=== PATIENT | female | born 1930 | race Caucasian/White ===

== ENCOUNTER 2017-01-21 10:10 | Inpatient (IN) | payer OTHER ==
[~2017-01-21] VITALS: Ht 157.5 cm; Wt 61.2 kg
[2017-01-21] VITALS (8 sets, daily range): BP systolic 89–123; BP diastolic 52–73
--- NOTE | ~2017-01-21 | P ---
[facility] [place] [address] PROCEDURE REPORT Name: AMARA GIBBONS Room #: 464-P [facility] IN M.R.#: [id number] Admission: 01/21/17 Attend Phys: Ted Cutler MD Discharge: 01/27/17 Date of : 31 Report #: [id number] THIS REPORT FOR: //name// CC: FAM unknown Rosemary Mcdermott MD DATE OF SERVICE: 01/26/2017 PROCEDURE PERFORMED: ERCP with sphincterotomy and stone removal. HISTORY OF PRESENT ILLNESS: The patient is an 86-year-old female who was admitted on 01/21/2017 with abdominal pain. She is originally admitted in [place] and was found to have cholelithiasis and transferred to [place]. Dr. Mcdermott proceeded with a cholecystectomy for a gangrenous necrotic gallbladder intraoperative cholangiogram revealed evidence of choledocholithiasis. The patient has been doing well post-surgery. Her LFTs remain normal. Plan is for ERCP. DESCRIPTION OF PROCEDURE: The risks and benefits of the procedure were explained to the patient. Those risks including but not limited to bleeding, perforation and the risk of sedation. She understood these risks and gave informed consent. Sedation was given using MAC anesthesia per anesthesia. The procedure was performed in the interventional radiology suite. The patient is already on IV Zosyn at this time. She was also given a 50 mg indomethacin rectal suppository prior to the procedure. Next, using a standard Fujinon side-viewing ERCP scope, the scope was placed in the patient's mouth and advanced under direct vision through the esophagus, stomach and into the second portion of the duodenum. The major papilla was identified and normal in appearance. Next, using a Matt-FoxyTunes 0.025 dome-tipped sphincterotome catheter, initially the pancreatic duct was cannulated and I then manipulated the catheter and was able to get into the common bile duct. A cholangiogram was then obtained. There appeared to be several filling defects within the common bile duct, which was dilated somewhat to bout 9-10 mm. A guidewire was then advanced into the intrahepatic ducts, which were normal. Next, a sphincterotomy was performed without difficulty. Next, the sphincterotome was removed and a balloon catheter was advanced over the guidewire into the common bile duct. Next, balloon sweeps were then performed. A total of 3 medium sized stones were removed without difficulty. Several further balloon sweeps showed no further stones. Next, a balloon occlusion cholangiogram was obtained. There were no further filling defects noted. At this point, the catheter and wire removed. The scope was then withdrawn and the procedure terminated. The patient tolerated the procedure well. [address] [address] PROCEDURE REPORT Name: AMARA GIBBONS Room #: 464-P DIS IN M.R.#: [id number] Admission: 01/21/17 Attend Phys: Ted Cutler MD Discharge: 01/27/17 Date of : 31 Report #: [id number] IMPRESSION: 1. Choledocholithiasis status post ERCP with sphincterotomy and removal of 3 stones. 2. Normal intrahepatic bile duct. RECOMMENDATIONS: Observe the patient post-procedure. Thank you for allowing me to participate in her care. <ELECTRONICALLY SIGNED> By: Musa Conner MD 01/29/17 1440 1412 1812 Musa Conner MD /nt
--- NOTE | ~2017-01-21 | S ---
[facility] [place] [address] SURGICAL PATH RPT PROCEDURE Name: AMARA GIBBONS Room #: 464-P ADM IN M.R.#: [id number] Admission: 01/21/17 Date of : 31 Discharge: Report #: [id number] Path Case #: [id number] PATHOLOGY REPORT COLLECTION DATE: 01/21/2017 RECEIVED DATE: 01/22/2017 SUBMITTING PHYS: Dr. Luis Mcdermott OTHER PHYS: Dr. He Jean SPECIMEN(S) RECEIVED: A.Gallbladder * * * * * * * * * * * * FINAL DIAGNOSIS: Gallbladder, cholecystectomy: - Marked acute cholecystitis associated with gangrenous necrosis and ulceration. - Cholelithiasis. - One incidental lymph node. (IUV:mgr; 01/25/2017) PATHOLOGIST: No Marrero M.D. REPORT ELECTRONICALLY SIGNED BY: No Marrero M.D. DATE/TIME: 01/25/2017 18:55 * * * * * * * * * * * * GROSS PATHOLOGY: Received in formalin labeled "Amara French, gallbladder," is a 10.2 x 4.8 x 1.7 cm, previously opened gallbladder with smooth, shiny, and dark browndark pinkgray serosal surfaces. The gallbladder is opened to show a spongy, dark greenbrown, bile-stained mucosa and an average wall thickness of 0.2 cm. Calculi are present and no masses are noted grossly. Manager Housekeeping sections from the body and fundus are submitted along with the proximal margin in cassette A1. (SNA; 01/22/2017) CLINICAL HISTORY: Acute cholecystitis INITIAL CPT CODE(S): A; 12398 Professional services performed by [facility] at [facility] [address], [place] [address] [facility] [address] [place] [address] SURGICAL PATH RPT PROCEDURE Name: AMARA GIBBONS Room #: 464-P ADM IN M.R.#: [id number] Admission: 01/21/17 Date of : 31 Discharge: Report #: [id number] Path Case #: [id number] Technical services performed by [facility] at [address] [place] [address], [address] [address]. [facility] [address] [place] [address] PHONE: [phone] DIRECTOR: Jimmy Waldron M.D. * * * END OF REPORT * * *
--- NOTE | ~2017-01-21 | O ---
[facility] [place] [address] OPERATIVE REPORT Name: AMARA GIBBONS Room #: 464-P ADM IN M.R.#: [id number] Admission: 01/21/17 Attend Phys: Ted Cutler MD Discharge: Date of : 31 Report #: [id number] THIS REPORT FOR: //name// CC: FAM hugo Rosemary Nelsy Mcdermott DATE OF SERVICE: 01/21/2017 SURGEON: Luis Mcdermott M.D. BOWLING TEACHER: None. PREOPERATIVE DIAGNOSES: 1. Acute cholecystitis. 2. Stage 3 chronic kidney disease. 3. Atrial fibrillation. 4. Mitral regurgitation. POSTOPERATIVE DIAGNOSES: 1. Acute ruptured cholecystitis with necrosis. 2. Choledocholithiasis. 3. Incarcerated umbilical hernia. 4. Stage 3 chronic kidney disease. 5. Atrial fibrillation. 6. Mitral regurgitation. PROCEDURE: 1. Laparoscopic cholecystectomy with intraoperative cholangiogram. 2. Laparoscopic repair of incarcerated umbilical hernia. ANESTHESIA: General endotracheal anesthesia and local anesthetic. ESTIMATED BLOOD LOSS: 25 mL. SPECIMEN: Gallbladder. COMPLICATIONS: None appreciated. INDICATIONS FOR PROCEDURE: This is an 86-year-old female patient who presented to the [facility] in [place] 2 days ago with acute onset right upper quadrant abdominal pain and awakening her from her sleep. She reports a 2-year history of biliary colic symptoms. She denies any fever or chills and had some nausea and vomiting. She was being planned for cholecystectomy; however, her INR could not be brought down appropriately and [facility] [address] [place] [address] OPERATIVE REPORT Name: AMARA GIBBONS Room #: 464-P ADM IN M.R.#: [id number] Admission: 01/21/17 Attend Phys: Ted Cutler MD Discharge: Date of : 31 Report #: [id number] she began to develop pulmonary issues. She was then transferred to [facility] for further treatment. She had undergone a CT of the abdomen and pelvis and abdominal ultrasound revealing a distended gallbladder with gallstones with no significant gallbladder wall thickening. Perihepatic fluid was present on the CT scan. On exam, the patient had right upper quadrant tenderness to palpation and leukocytosis with a mildly elevated bilirubin at 2.1 and normal transaminases. The patient presents now for laparoscopic cholecystectomy with intraoperative cholangiogram. OPERATIVE FINDINGS: Upon entrance into the abdominal cavity, purulent bilious fluid was seen in the right perihepatic gutter. The gallbladder itself was quite erythematous with patchy areas of necrosis. Upon further retraction of the gallbladder on the anterior surface, the gallbladder had perforated through an area of ulceration. A clip was placed to eliot this area. The critical view consisting of the cystic artery, cystic duct and lower edge of the gallbladder forming a window through which the liver was visible was seen prior to clipping the cystic artery and cystic duct. Cholangiogram showed a dilated common bile duct and a distal common bile duct filling defect. Despite the administration of 2 ends of glucagon, the distal common bile duct stone could not be flushed through. Contrast did flow into the duodenal sweep. Three clips remained on the cystic duct, stump; 1 clip remained on the cystic artery stump. After removal of the gallbladder from the patient's body, various sized stones, so after removal PEG of the gallbladder from the patient's body, various sized stones were present within the gallbladder. There were 4 medium to large sized stones and several smaller stones within the gallbladder. The gallbladder itself had patchy areas of necrosis. Upon return to the abdominal cavity, the bilious fluid was seen in the left upper quadrant. Fibrinous exudate was present in this area. Area was irrigated and suctioned as was the remainder of the abdominal cavity until fluid returned was clear as possible. Decision was made to place a drain. The Hemoclips were secure. Incarcerated umbilical hernia defect was present and this was repaired with a separate suture for complete closure. At the conclusion of the operation, the sponge, needle, and instrument counts were correct. DESCRIPTION OF PROCEDURE IN DETAIL: After the risks, benefits, and expectations of the operation were discussed in detail with the patient and family, informed consent was obtained. The patient was identified in the preoperative holding area. She was given IV antibiotics as documented in the chart in line with the SCIP metrics. The patient was then taken to the operating room and she was placed in the supine position. SCDs were placed on the patient's bilateral lower extremities and pneumatic compression was initiated. The patient was then given IV sedation and she was intubated without incident. Her abdomen was prepped and draped in the standard sterile fashion. A time-out was then performed to identify the correct patient and procedure. Local anesthetic was infiltrated into the skin and subcutaneous tissue supraumbilically where a curvilinear incision was made with #15 blade scalpel. The 11 mm Visiport was [facility] [address] [place] [address] OPERATIVE REPORT Name: AMARA GIBBONS Room #: 464-P ADM IN Sami.Domenic#: [id number] Admission: 01/21/17 Attend Phys: Ted Cutler MD Discharge: Date of : 31 Report #: [id number] then placed intraperitoneally with a 0-degree angled laparoscope. Pneumoperitoneum was achieved with insufflation of carbon dioxide to 15 mmHg. The patient was placed in the reverse Trendelenburg position, rotated to her left. A subxiphoid 5 mm and right subcostal 5 mm ports x 2 were placed under direct visualization after local anesthetic was infiltrated into the skin and subcutaneous tissue and appropriately sized incisions were made. Findings are as noted above. The fluid was suctioned from the abdominal cavity as much as possible. The dome of the gallbladder was then retracted and while dissecting away the surrounding tissue, the ulcerated area with perforation was identified. The gallbladder was retracted further cephalad and dissection was carried out around the cystic artery and cystic duct to identify both structures as the only two structures entering the gallbladder. This was done carefully. After identifying the critical view of safety, the cystic duct was clipped at its junction with the neck of the gallbladder. A ductotomy was created. The duct was milked back. The cholangiocatheter was then inserted into the opening and held in place with a Hemoclip. The patient was leveled and a cholangiogram was performed with findings as noted above. The patient was given 2 mg of glucagon and after waiting 2 minutes after its administration, the cystic duct was forcibly flushed with normal saline under fluoroscopy. The distal common bile duct filling defect did not clear. Despite this, contrast flowed into the duodenal sweep. The Hemoclip and Cholangiogram catheter were then removed. The cystic duct was triply clipped distal the ductotomy and the cystic duct was divided with the ultrasonic dissector leaving three clips on the cystic duct stump. The cystic artery was doubly clipped and divided leaving a single clip on the cystic artery stump. The gallbladder was then dissected out the liver bed with blunt dissection as well as use of the ultrasonic dissector and electrocautery. The gallbladder was detached from the liver bed, then placed in an Endopouch along with the stones that have spilled out of the opening in the gallbladder. The gallbladder was then removed through the supraumbilical port site. While doing so, umbilical hernia was identified. The preperitoneal tissue entering the defect was carefully dissected free to delineate the fascial opening. A [id number]-ut-qutwh 0 PDS suture was placed to close the fascial defect. An 0 PDS suture was placed with the Rian-Samra laparoscopic fascial closure device to approximate the port site fascial opening as well. The suture was tagged and the port was replaced. The abdominal cavity was reentered. The liver bed was made hemostatic with electrocautery. The abdominal cavity was irrigated and suctioned until return of all drainage ran as clear as possible. Bilious fluid was present in the left upper quadrant of the abdomen as well as in the right upper quadrant around the liver. A 19-Kiswahili Armin drain was placed within the abdominal cavity and brought out through the right lateral port site. The drain was secured to the skin with a 2-0 nylon suture. The drain was positioned intraabdominally to drain the liver bed as well as the left upper quadrant of the abdomen. The 12 mm port was then removed and the fascial suture was tied under direct visualization to ensure no incorporation of intraabdominal content. No other significant intraabdominal pathology was identified. The abdominal cavity was desufflated and the remaining ports were [address] [address] OPERATIVE REPORT Name: AMARA GIBBONS Room #: 464-P ADM IN M.R.#: [id number] Admission: 01/21/17 Attend Phys: Ted Cutler MD Discharge: Date of : 31 Report #: [id number] removed. Interrupted subcuticular 4-0 Monocryl sutures and Dermabond were used to close the skin incisions. The patient tolerated the procedure well. She was awakened, extubated, and taken to recovery room in stable condition with no apparent intraoperative complications. Gastroenterology has been consulted as the patient will likely require ERCP. <ELECTRONICALLY SIGNED> By: Luis Mcdermott MD, FACS 01/22/17 0735 2240 2347 Luis Mcdermott MD, FACS /nt
--- NOTE | ~2017-01-21 | HC ---
[facility] [place] [address] CONSULTATION Name: AMARA GIBBONS Room #: 464-P ADM IN M.R.#: [id number] Admission: 01/21/17 Attend Phys: Ted Cutler MD Discharge: Date of : 31 Report #: [id number] THIS REPORT FOR: //name// CC: FAM unknown Rosemary Mcdermott MD PRIMARY CARE PROVIDER: Nurse practitioner [facility] in [place], [place]. REASON FOR CONSULTATION: The patient is an 86-year-old woman status post laparoscopic cholecystectomy with evidence of choledocholithiasis. HISTORY OF PRESENT ILLNESS: This 86-year-old woman reports it is actually for the past 3-4 years she has had bouts of postprandial abdominal pain in her abdomen. When she gets the pain, she will generally lie down until the symptoms resolve. However, recently she had a severe episode of actually 2 pains; one was in the right upper quadrant and the other was in the mid abdomen. The pain persisted and she was admitted to hospital in [place]. She was found to have cholelithiasis, but due to her atrial fibrillation, she was transferred to [facility] and was taken to surgery yesterday by Dr. Mcdermott. She had a gangrenous, necrotic gallbladder, which was removed. Intraoperative cholangiogram revealed evidence of choledocholithiasis. There was clearly at least one stone in the distal duct and there were 2 other filling defects that flowed up in the bile duct. Although they flowed, to me they looked irregular and I suspect that these are stones as well. Following her surgery, she has done well. She has some postprandial pain today, but overall, she is comfortable without any specific complaints. LABORATORY DATA: Laboratory studies showed initially she had a bilirubin of 2.1; today, it is down 0.7. AST is 50, ALT 34 and alkaline phosphatase 49. Albumin 1.9. Electrolytes normal. Creatinine 1.3 and BUN of 23. White count was 11.9 yesterday, 11,000 today; hemoglobin 12.5 after hydration. INR is 1.3. PAST MEDICAL HISTORY: Atrial fibrillation, on warfarin. She has a leaky heart valve; she does not know which valve. She has a pacemaker in place. She has also had a high blood pressure. PAST SURGICAL HISTORY: Right hip replacement times 2, appendectomy many years ago, previous hysterectomy and right index finger amputation. She has had bladder suspension as well. ALLERGIES: No known drug allergies. MEDICATIONS: Usual home medications, Coreg 6.25 mg twice daily, digoxin 0.125 mg daily, fluoxetine 20 mg, furosemide 20 mg daily, Zestril 5 mg daily, [address] [address] CONSULTATION Name: AMARA GIBBONS Room #: 464-P [facility] IN M.R.#: [id number] Admission: 01/21/17 Attend Phys: Ted Cutler MD Discharge: Date of : 31 Report #: [id number] potassium 20 mEq daily, spironolactone 25 mg daily and warfarin 4 mg daily. FAMILY HISTORY: Sister had irritable bowel syndrome. No family history of colon cancer. SOCIAL HISTORY: She is , lives alone. She has never smoked. She does not drink alcohol. REVIEW OF SYSTEMS: GENERAL: No change in weight, fever or chills. CENTRAL NERVOUS SYSTEM: No focal weakness, numbness, loss of consciousness or strokes. ENT: No change in vision or hearing or sores in the mouth. PULMONARY: No cough, pneumonia or tuberculosis. CARDIOVASCULAR: Pacemaker, valvular heart disease and atrial fibrillation. Generally, no chest pain. GASTROINTESTINAL: She did have some nausea and vomiting with her severe episode of pain. She does tend to have some constipation. She has never had a colonoscopy. GENITOURINARY: Without dysuria, pyuria, kidney stones or . MUSCULOSKELETAL: Hip replacement. No other arthralgias. SKIN: Without rashes. PSYCHIATRIC: She is treated for depression/anxiety. ENDOCRINE: She is not aware of diabetes or thyroid problems. No change in hair, skin or weight. HEMATOLOGIC: No bleeding, bruising or malignancies. PHYSICAL EXAMINATION: GENERAL: The patient is a well-developed, well-nourished woman, in no acute distress. VITAL SIGNS: Blood pressure 110/59, pulse of 101. HEENT: Anicteric. Pupils equal and round. Oropharynx clear. NECK: Supple, without thyromegaly. CHEST: Clear. HEART: Irregular, S1, S2. ABDOMEN: Mild diffuse tenderness, consistent with a recent surgery. She does have bowel sounds. Abdomen is soft and completely benign. RECTAL: Not done. EXTREMITIES: Without cyanosis, clubbing or edema. NEUROLOGIC: Alert and oriented to person, place and time. Moves all 4 extremities well. Laboratory as noted above. ASSESSMENT: 1. Choledocholithiasis. [facility] [address] [place] [address] CONSULTATION Name: AMARA GIBBONS Room #: 464-P ADM IN M.R.#: [id number] Admission: 01/21/17 Attend Phys: Ted Cutler MD Discharge: Date of : 31 Report #: [id number] 2. Status post resection of necrotic gallbladder. 3. High blood pressure. 4. Atrial fibrillation, discussed with Dr. Mcdermott. The patient currently off anticoagulation. Discussed with patient. RECOMMENDATIONS: ERCP with endoscopic sphincterotomy and stone extraction. We will schedule as soon as it can be done. <ELECTRONICALLY SIGNED> By: Turner Chino MD 01/22/17 1523 1251 1443 Turner Chino MD /nt
--- NOTE | ~2017-01-21 | HC ---
[facility] [place] [address] CONSULTATION Name: AMARA GIBBONS Room #: 464-P ADM IN M.R.#: [id number] Admission: 01/21/17 Attend Phys: Ted Cutler MD Discharge: Date of : 32 Report #: [id number] THIS REPORT FOR: //name// CC: FAM unknown Rosemary Cutler DATE OF SERVICE: 01/21/2017 ATTENDING PHYSICIAN: Rosemary Whittington MD CONSULTING PHYSICIAN: Luis Mcdermott MD REASON FOR CONSULTATION: Right upper quadrant abdominal pain. HISTORY OF PRESENT ILLNESS: This is an 86-year-old female patient who presented to the [facility] Wednesday, 2 days ago, with acute onset right upper quadrant abdominal pain, which awakened her from her sleep prior to her admission. She reports having had previous biliary colic symptoms. She denies fever or chills and had some difficulty with nausea and vomiting. She was followed there and had an elevated INR for which she was treated with vitamin K and FFP. Dr. Ludin Cosby with the surgery department was planning on operating on the patient; however, he was unable to get her INR down to an appropriate level. In addition to this, the patient was felt to be developing pulmonary issues and as such, she was transferred to [facility]. I have been asked to see the patient for further evaluation and treatment. She underwent a CT of the abdomen and pelvis at [facility] as well as an ultrasound. Both studies showed a distended gallbladder with gallstones and no significant gallbladder wall thickening. On the CT scan, perihepatic fluid was present. PAST MEDICAL HISTORY: Significant for atrial fibrillation, stage 3 CKD, mitral regurgitation, and hypertension. PAST SURGICAL HISTORY: Pacemaker placement for sick sinus syndrome, appendectomy, bilateral total hip arthroplasty and laparoscopic hiatal hernia repair 4 years ago. MEDICATIONS: Currently include Zosyn, metoprolol, and p.r.n. medications. ALLERGIES: No known drug allergies. FAMILY HISTORY: Reviewed and noncontributory to this hospitalization. SOCIAL HISTORY: The patient denies use of tobacco, alcohol or illicit drugs. [place] and is accompanied by several family members. [facility] [address] [place] [address] CONSULTATION Name: AMARA GIBBONS Room #: 464-P [facility].#: [id number] Admission: 01/21/17 Attend Phys: Ted Cutler MD Discharge: Date of : 32 Report #: [id number] REVIEW OF SYSTEMS: As per history of present illness. In addition: GENERAL: The patient denies fever or chills. Reports a 20-pound weight loss over the past 6-7 years. HEENT: Denies changes in taste, vision, hearing, or smell. RESPIRATORY: Denies worsening shortness of breath, COPD, or asthma. CARDIOVASCULAR: Denies chest pain or palpitations. GASTROINTESTINAL: As per history of present illness. Denies bright red blood per rectum. GENITOURINARY: Denies dysuria, urgency, increased urinary frequency, or hematuria. MUSCULOSKELETAL: Denies myalgia or arthralgia. NEUROLOGIC: Denies headaches, numbness, or tingling. PSYCHIATRIC: Denies depression, anxiety, or suicidal ideations. SKIN AND INTEGUMENTARY: Denies new skin lesions, rashes, or moles. ENDOCRINE: Denies polydipsia, polyuria, heat or cold intolerance. HEMATOLOGIC: Reports easy bleeding and bruising on the Coumadin. All other review of systems is negative. PHYSICAL EXAMINATION: VITAL SIGNS: Temperature 97.8, blood pressure 110/72, pulse 90, respirations 18, height 5 feet 2 inches, and weight 135 pounds. GENERAL: This is an 86-year-old female patient, in no acute distress. She is friendly and cooperative. HEENT: Atraumatic, normocephalic with moist mucosal membranes. Oropharynx is clear. She has no scleral icterus. NECK: Supple, no appreciable lymphadenopathy. Trachea is midline. CHEST: Clear bilaterally. CARDIOVASCULAR: Regular rate and rhythm. ABDOMEN: Soft, but tender to palpation, greatest in the right upper quadrant. She has a negative Miller's sign, no rebound or guarding. There is fullness in the right upper quadrant of her abdomen. Surgical scars are present with no associated hernias. GENITOURINARY: Normal external female genitalia. EXTREMITIES: No clubbing, cyanosis, or edema. NEUROLOGIC: Cranial nerves 2-12 are grossly intact. PSYCHIATRIC: Normal mood and affect. SKIN/INTEGUMENTARY: No jaundice. LABORATORY DATA: CBC shows a white blood cell count of 11.9, hemoglobin 14.2, hematocrit 42.6, and platelets 181. Comprehensive metabolic profile showed a sodium of 136, potassium 3.7, chloride 100, CO2 of 24, BUN 15, creatinine 1.2, and glucose 85. Total bilirubin was elevated at 2.1. Her transaminases were within normal limits. Alkaline phosphatase was normal at 57. Lactic acid was normal at 1.5. Her stat INR was 1.35. [address] [address] CONSULTATION Name: AMARA GIBBONS Room #: 464-P [facility]#: [id number] Admission: 01/21/17 Attend Phys: Ted Cutler MD Discharge: Date of : 32 Report #: [id number] RADIOLOGIC STUDIES: CT and abdominal ultrasound findings are as noted above. The patient underwent chest x-ray here at [facility] showing left lower lung infiltrate/atelectasis with a possible small left pleural effusions. IMPRESSION AND PLAN: This is an 86-year-old female patient with the above listed comorbidities who has right upper quadrant abdominal pain and findings consistent with acute cholecystitis. We discussed the pathophysiology and natural history of biliary disease as well as the treatment alternatives and surgical options. The patient would benefit from laparoscopic cholecystectomy with cholangiogram. We also discussed the possibility of a cholecystostomy tube. We discussed the risks, benefits, and expectations of the operation in detail. The patient and her family expressed understanding. She would like to proceed with surgery and she appears to be stable enough to undergo the operation. She will be taken to the operating room at the next earliest availability. I sincerely appreciate the opportunity to participate in the care of this patient and we will leave further recommendations and orders in the electronic medical record as appropriate. Thank you very much. <ELECTRONICALLY SIGNED> By: Luis Mcdermott MD, FACS 01/21/174 28 Luis Mcdermott MD, FACS /nt
[2017-01-21 13:32] LABS: HEMATOCRIT 42.6 % (37.0-47.0); HEMOGLOBIN 14.2 gm/dL (12.0-15.0); MCHC 33.3 g/dL (28.0-37.0); MCV 93.2 fL (80.0-100.0); RBC 4.57 mil/uL (4.20-5.00); WBC 11.9 thou/uL (4.0-11.0)
[2017-01-21 13:49] LABS: ALBUMIN 2.3 g/dL (3.4-5.0); CALCIUM 8.3 mg/dL (8.5-10.1); CREATININE 1.2 mg/dL (0.6-1.0); POTASSIUM 3.7 mmol/L (3.5-5.1); TOTAL BILIRUBIN 2.1 mg/dL (<0.1-1.0); TOTAL PROTEIN 6.5 g/dL (6.4-8.2)
[2017-01-21 16:49] LABS: INR 1.3
[2017-01-21 16:52] LABS: PROTIME 13.7 Seconds (9.3-11.4)
[2017-01-21] MEDS ORDERED: COREG6.25 MG PO (19:04)
[2017-01-21] MEDS ORDERED: DIGOXIN125 MCG PO (19:04)
[2017-01-21] MEDS ORDERED: PROZAC20 MG PO (19:04)
[2017-01-21] MEDS ORDERED: LASIX 20 MG TAB20 MG PO (19:05)
[2017-01-21] MEDS ORDERED: POTASSIUM20 PO (19:05)
[2017-01-21] MEDS ORDERED: LISINOPRIL5 MG PO (19:05)
[2017-01-21] MEDS ORDERED: ALDACTONE25 MG PO (19:06)
[2017-01-21] MEDS ORDERED: COUMADIN 4 MG TA4 M1 PO (19:06)
[2017-01-22] VITALS (7 sets, daily range): BP systolic 89–120; BP diastolic 52–72
[2017-01-22 05:48] LABS: HEMATOCRIT 37.3 % (37.0-47.0); HEMOGLOBIN 12.5 gm/dL (12.0-15.0); MCH 31.4 pg (26.0-34.0); MCHC 33.5 g/dL (28.0-37.0); MCV 93.9 fL (80.0-100.0); PLATELET COUNT 167 thou/uL (150-400); RBC 3.97 mil/uL (4.20-5.00)
[2017-01-22 05:58] LABS: INR 1.3; MANUAL DIFF YES
[2017-01-22 06:05] LABS: ALBUMIN 1.9 g/dL (3.4-5.0); CALCIUM 7.8 mg/dL (8.5-10.1); CREATININE 1.3 mg/dL (0.6-1.0); MAGNESIUM 1.7 mg/dL (1.8-2.4); POTASSIUM 3.5 mmol/L (3.5-5.1); TOTAL BILIRUBIN 0.7 mg/dL (<0.1-1.0); TOTAL PROTEIN 5.9 g/dL (6.4-8.2)
[2017-01-22 07:28] LABS: ABSOLUTE NEUTROPHILS 10.1 thou/uL (1.4-8.2); ANISOCYTOSIS SLIGHT; TOTAL CELL COUNT 100
[2017-01-23 04:28] LABS: HEMATOCRIT 33.6 % (37.0-47.0); HEMOGLOBIN 11.4 gm/dL (12.0-15.0); MCH 31.5 pg (26.0-34.0); MCHC 33.8 g/dL (28.0-37.0); MCV 93.3 fL (80.0-100.0); PLATELET COUNT 199 thou/uL (150-400); RDW 12.8 % (10.5-14.5); WBC 11.6 thou/uL (4.0-11.0)
[2017-01-23 04:31] LABS: MANUAL DIFF YES
[2017-01-23 04:33] LABS: ALBUMIN 1.9 g/dL (3.4-5.0); DIRECT BILIRUBIN 0.2 mg/dL (<0.1-0.3); TOTAL BILIRUBIN 0.4 mg/dL (<0.1-1.0); TOTAL PROTEIN 5.8 g/dL (6.4-8.2)
[2017-01-23 04:56] VITALS: BP 116/86
[2017-01-23 06:52] LABS: ABSOLUTE NEUTROPHILS 10.7 thou/uL (1.4-8.2); ANISOCYTOSIS 1+; TOTAL CELL COUNT 100
[2017-01-23 06:53] LABS: POLYCHROMASIA OCCASIONAL
[2017-01-23 07:48] VITALS: BP 127/86
[2017-01-23 12:04] VITALS: BP 137/80
[2017-01-23 15:23] VITALS: BP 127/84
[2017-01-23 20:28] VITALS: BP 141/97
[2017-01-24 00:46] VITALS: BP 128/78
[2017-01-24 04:47] LABS: ALBUMIN 1.9 g/dL (3.4-5.0); CALCIUM 7.9 mg/dL (8.5-10.1); CREATININE 1.2 mg/dL (0.6-1.0); POTASSIUM 3.3 mmol/L (3.5-5.1)
[2017-01-24 05:04] VITALS: BP 132/88
[2017-01-24 08:43] VITALS: BP 138/93
[2017-01-24 12:17] VITALS: BP 147/88
[2017-01-24 15:34] VITALS: BP 125/85
[2017-01-25] VITALS: BP 130/94
[2017-01-25 03:48] VITALS: BP 133/95
[2017-01-25 07:52] VITALS: BP 143/92
[2017-01-25 10:38] LABS: CALCIUM 8.2 mg/dL (8.5-10.1); CREATININE 1.2 mg/dL (0.6-1.0); POTASSIUM 3.6 mmol/L (3.5-5.1)
[2017-01-25 12:13] VITALS: BP 131/72
[2017-01-25 16:23] VITALS: BP 125/88
[2017-01-25 19:31] VITALS: BP 130/81
[2017-01-26 04:45] VITALS: BP 131/83
[2017-01-26 05:38] LABS: ABSOLUTE NEUTROPHILS 7.2 thou/uL (1.4-8.2); BASOPHILS 0.5 % (0.0-2.0); EOSINOPHILS 4.8 % (0.0-3.0); HEMATOCRIT 36.8 % (37.0-47.0); HEMOGLOBIN 12.5 gm/dL (12.0-15.0); LYMPHOCYTES 10.5 % (24.0-44.0); MCH 31.7 pg (26.0-34.0); MCHC 33.9 g/dL (28.0-37.0); MCV 93.5 fL (80.0-100.0); MONOCYTES 9.4 % (1.0-8.0); PLATELET COUNT 232 thou/uL (150-400); POLYS 74.8 % (36.0-66.0); RBC 3.94 mil/uL (4.20-5.00); RDW 13.5 % (10.5-14.5); WBC 9.6 thou/uL (4.0-11.0)
[2017-01-26 05:44] LABS: MANUAL DIFF NO
[2017-01-26 05:58] LABS: ALBUMIN 1.9 g/dL (3.4-5.0); CALCIUM 8.4 mg/dL (8.5-10.1); CREATININE 1.1 mg/dL (0.6-1.0); MAGNESIUM 1.8 mg/dL (1.8-2.4); POTASSIUM 3.7 mmol/L (3.5-5.1); TOTAL BILIRUBIN 0.6 mg/dL (<0.1-1.0); TOTAL PROTEIN 5.6 g/dL (6.4-8.2)
[2017-01-26 08:34] VITALS: BP 153/86
[2017-01-26 11:19] VITALS: BP 141/88
[2017-01-26 14:49] VITALS: BP 153/86
[2017-01-26 17:45] VITALS: BP 142/89
[2017-01-26 19:28] VITALS: BP 146/88
[2017-01-27 03:19] VITALS: BP 130/86
[2017-01-27 04:49] LABS: ABSOLUTE NEUTROPHILS 7.7 thou/uL (1.4-8.2); BASOPHILS 0.4 % (0.0-2.0); EOSINOPHILS 4.4 % (0.0-3.0); HEMATOCRIT 36.2 % (37.0-47.0); HEMOGLOBIN 12.3 gm/dL (12.0-15.0); LYMPHOCYTES 9.5 % (24.0-44.0); MCH 31.8 pg (26.0-34.0); MCHC 33.9 g/dL (28.0-37.0); MCV 93.6 fL (80.0-100.0); MONOCYTES 8.4 % (1.0-8.0); PLATELET COUNT 250 thou/uL (150-400); POLYS 77.3 % (36.0-66.0); RBC 3.87 mil/uL (4.20-5.00)
[2017-01-27 04:52] LABS: MANUAL DIFF NO
[2017-01-27 05:02] LABS: CALCIUM 8.4 mg/dL (8.5-10.1); CREATININE 1.2 mg/dL (0.6-1.0); MAGNESIUM 1.8 mg/dL (1.8-2.4); POTASSIUM 3.5 mmol/L (3.5-5.1)
[2017-01-27 08:28] VITALS: BP 135/82
[2017-01-27] MEDS ORDERED: AUGMENTIN 875-1 EACH PO (11:25)
[2017-01-27] MEDS ORDERED: MIRALAX17 GM PO (11:25)
[2017-01-27] MEDS ORDERED: PROBIOTIC1 EAC1 PO (11:25)
[2017-01-27] MEDS ORDERED: COLACE100 MG PO (11:25)
[2017-01-27 11:54] VITALS: BP 135/82
[2017-01-27 12:13] VITALS: BP 135/82
[2017-01-27 12:30] VITALS: BP 135/82
== END 2017-01-27 13:23 | disposition home health service (06) | DRG 417 ==
LOC: 4W 10:10
PROVIDERS: Hospitalist; Internal Medicine; Nurse Practitioner; Specialist; Surgery
PROC: BF131ZZ Fluoroscopy of Gallbladder and Bile Ducts using Low Osmolar Contrast (ICD-10-PCS; principal; 2017-01-21)
PROC: 0FT44ZZ Resection of Gallbladder, Percutaneous Endoscopic Approach (ICD-10-PCS; principal; 2017-01-21)
PROC: 0WQF4ZZ Repair Abdominal Wall, Percutaneous Endoscopic Approach (ICD-10-PCS; principal; 2017-01-21)
PROC: 0FC98ZZ Extirpation of Matter from Common Bile Duct, Via Natural or Artificial Opening Endoscopic (ICD-10-PCS; 2017-01-26)
DX: K80.62 Calculus of gallbladder and bile duct with acute cholecystitis without obstruction (principal); K82.2 Perforation of gallbladder; K42.0 Umbilical hernia with obstruction, without gangrene; N17.9 Acute kidney failure, unspecified; D68.9 Coagulation defect, unspecified; J98.11 Atelectasis; E87.1 Hypo-osmolality and hyponatremia; I12.9 Hypertensive chronic kidney disease with stage 1 through stage 4 chronic kidney disease, or unspecified chronic kidney disease; N18.3 Chronic kidney disease, stage 3 (moderate); I48.91 Unspecified atrial fibrillation; I49.5 Sick sinus syndrome; I34.0 Nonrheumatic mitral (valve) insufficiency; Z96.643 Presence of artificial hip joint, bilateral; Z90.49 Acquired absence of other specified parts of digestive tract; Z90.710 Acquired absence of both cervix and uterus; Z89.021 Acquired absence of right finger(s); Z95.0 Presence of cardiac pacemaker; Z83.79 Family history of other diseases of the digestive system
CPT/HCPCS: 10047; 50010; 50101; 50249; 50331; 50411; 50555; 50558; 50962; 51489; 51975; 52265; 52266; 53307; 54022; 54118; 55245; 55317; 56525; 56526; 62110; 62900; 70005